=== PATIENT | male | born 1955 | race Caucasian/White ===

== ENCOUNTER 2022-07-04 19:01 | Emergency (ER) | payer MEDICARE, OTHER ==
[2022-07-04 19:14] VITALS: BP 180/85
--- NOTE | 2022-07-04 19:57 | ED Physician Documentation ---
History of Present Illness - Stated complaint Stated Complaint: FELL/STAIRS INJURY - Chief complaint Chief Complaint: Trauma Ch/Bk - History obtained from History obtained from: Patient, Family - History of Present Illness Timing: How many minutes ago (45) Pain level max: 5 Pain level now: 3 - Additonal information Additional information: Patient is a 66-year-old male who was carrying a fireplace insert down the stairs when he slipped and fell, they were wooden stairs. No loss of consciousness, but was "dazed". Occurred about 45 minutes prior to arrival. Patient is not on any blood thinners. Denies any neck pain or back pain, does have sacrum/coccyx pain. No numbness or tingling. Also complains of right ankle and right foot pain. Patient does not take any medications at home. He states that his tetanus shot is up-to-date. He is accompanied by his . No vomiting. No seizure activity Review of Systems Constitutional: denies: Fever, Chills GI: denies: Vomiting, Diarrhea Skin: denies: Rash Neurologic: denies: Focal weakness, Numbness, Syncope, Seizure PD PAST MEDICAL HISTORY - Past Medical History Past Medical History: No - Past Surgical History Past Surgical History: No - Present Medications Home Medications: Ambulatory Orders Medication Instructions Recorded Confirmed No Known Home Medications 07/04/22 07/04/22 - Allergies Allergies/Adverse Reactions: Allergies Allergy/AdvReac Type Severity Reaction Status Date / Time No Known Drug Allergies Allergy Verified 07/04/22 19:13 - Living Situation Living Situation: reports: With family Living Arrangement: reports: At home - Social History Does the pt have substance abuse?: No - Family History Family history: reports: Non contributory - Immunizations Immunizations are current?: No Immunizations: TDAP >10years/unknown PD ED PE NORMAL - Vitals Vital signs reviewed: Yes - General General: Alert and oriented X 3, No acute distress, Well developed/nourished - HEENT HEENT: PERRL, Ears normal, Moist mucous membranes, Pharynx benign, Other (No palpable skull fractures. Small abrasion to the left side of the scalp, near the tenriism.) - Neck Neck: Supple, no meningeal sign, No bony TTP, No JVD - Cardiac Cardiac: RRR, Strong equal pulses - Respiratory Respiratory: No respiratory distress, Clear bilaterally - Abdomen Abdomen: Soft, Non tender, Non distended - Back Back: No spinal TTP (No midline tenderness to palpation or percussion over the thoracic or lumbar spine. Does have mild tenderness over the sacrum.) - Extremities Extremities: No deformity, Other (Tender to palpation over the right lateral malleolus. Otherwise normal examination of the foot and ankle of the right lower extremity. Full range of motion of all major joints of the extremities without pain other than the right ankle. NVI) - Neuro Neuro: Alert and oriented X 3, director visual 2-12 intact, No motor deficit, No sensory deficit, Normal speech, Other (Slightly slow to respond to questions.) Eye Opening: Spontaneous Motor: Obeys Commands Verbal: Oriented GCS Score: 15 - Psych Psych: Normal mood, Normal affect Results - Vitals Vitals: Vital Signs - 24 hr 07/04/22 07/04/22 19:09 20:05 Temperature 36.8 C Heart Rate 78 Respiratory 21 Rate Blood Pressure 180/85 H O2 Saturation 100 98 Oxygen O2 Source Room air - Rads (name of study) CT head Relevant Findings:: Final report received, See rad report CT cervical spine Relevant Findings:: Final report received, See rad report Sacrum/coccyx x-ray Relevant Findings:: Final report received, See rad report Right ankle x-ray Relevant Findings:: Final report received, See rad report Right foot x-ray Relevant Findings:: Final report received, See rad report PD Medical Decision Making - ED course Complexity details: reviewed results, re-evaluated patient, considered differential, d/w patient ED course: 66-year-old male with a fall down several stairs. Appears to have a concussion. Head CT does not show any acute abnormalities. Negative CT cervical spine. Negative sacrum x-ray. Negative right foot x-ray. Right ankle shows a nondisplaced transverse fracture at the tip of the lateral malleolus. Placed in a walking boot for this Patient is ambulating well. We will have him follow-up with his doctor for further care. Patient and family counseled regarding signs and symptoms for which I believe and urgent re-evaluation would be necessary. Patient with good understanding of and agreement to plan and is comfortable going home at this time This document was made in part using voice recognition software. While efforts are made to proofread this document, sound alike and grammatical errors may occur. Tdap given. Patient declines any pain medications here or for home Departure - Departure Disposition: 01 Home, Self Care Clinical Impression: Fracture of distal fibula Qualifiers: Encounter type: initial encounter Fracture type: closed Fracture morphology: unspecified fracture morphology Laterality: right Qualified Code(s): S82.831A - Other fracture of upper and lower end of right fibula, initial encounter for closed fracture Concussion Qualifiers: Encounter type: initial encounter Loss of consciousness presence/duration: without LOC Qualified Code(s): S06.0X0A - Concussion without loss of consciousness, initial encounter Sacral contusion Qualifiers: Encounter type: initial encounter Qualified Code(s): S30.0XXA - Contusion of lower back and pelvis, initial encounter Condition: Good Instructions: ED Concussion, ED Contusion Sacrum Coccyx, ED Fx Lower Ext Follow-Up: Orthopedic Care [Provider Group] - Within 1 week Comments: Please follow-up with orthopedics in about 1 week to have your ankle reevaluated. Please return if you worsen. You can use Motrin or Tylenol as needed for pain at home. Your head CT, cervical spine CT do not show any acute abnormalities today. The x-ray of your right foot is normal, the x-ray of your sacrum is normal as well. On your head CT, you may have chronic sinusitis. You can follow-up with your doctor if you are having symptoms of this. Your ankle x-ray does show an acute transverse fracture at the inferior tip of the lateral malleolus. Please stay in the walking boot until released by orthopedics. Discharge Date/Time: 07/04/22 21:38
--- NOTE | 2022-07-04 20:34 | CT Report ---
PROCEDURE: HEAD WO INDICATIONS: fall, down stairs TECHNIQUE: Noncontrast 4.5 mm thick angled axial sections acquired from the foramen magnum to the vertex. For r adiation dose reduction, the following was used: automated exposure control, adjustment of mA and/or kV according to patient size. COMPARISON: None. FINDINGS: Image quality: Excellent. CSF spaces: Basal cisterns are patent. No extra-axial fluid collections. Ventricles are normal in size and shape. Brain: No midline shift. No intracranial masses or hemorrhage. Salomon-white matter interface is norm al. Skull and face: Calvarium and visualized facial bones are intact, without suspicious lesions. Sinuses: Visualized sinuses and mastoids are clear except for asymmetric opacification of a portion of the left ethmoid air cells and left nasal airway. IMPRESSION: No definite acute trauma found. No intracranial hemorrhage identified. Note is made of asymmetric lef t greater than right ethmoid air cell and nasal airway soft tissue prominence. Presumed chronic sinus itis. Reviewed by: Silviano Chen MD on 07/04/2022 8:32 PM PDT Approved by: Silviano Chen MD on 07/04/2022 8:32 PM PDT Station ID: [id number]
--- NOTE | 2022-07-04 20:35 | CT Report ---
PROCEDURE: CERVICAL SPINE WO INDICATIONS: fall, down stairs TECHNIQUE: Noncontrast 3 mm thick sections acquired from the skull base to the T4 level. Sagittal and coronal r eformats were then constructed. For radiation dose reduction, the following was used: automated exp osure control, adjustment of mA and/or kV according to patient size. COMPARISON: None. FINDINGS: Image quality: Excellent. Bones: No fractures or dislocations. Visualized superior ribs are intact. Soft tissues: Prevertebral soft tissues are normal in thickness. No paravertebral hematomas. No ap ical pneumothoraces. IMPRESSION: Mild to moderate degenerative disc disease and facet osteoarthritis but no fracture or traumatic subl uxation is found. Reviewed by: Silviano Chen MD on 07/04/2022 8:34 PM PDT Approved by: Silviano Chen MD on 07/04/2022 8:34 PM PDT Station ID: [id number]
--- NOTE | 2022-07-04 20:37 | XRAY Report ---
PROCEDURE: Ankle 3 View RT INDICATIONS: fall, down stairs TECHNIQUE: views of the ankle were acquired. COMPARISON: None. FINDINGS: Bones: No fractures. Ankle mortise is normally aligned. No suspicious bony lesions. There is a tra nsverse fracture at the inferior tip of the lateral malleolus with overlying soft tissue swelling. Ac cessory ossicles are seen at the base of the cuboid bone on the lateral projection as is a relatively prominent plantar fascial insertion spur, chronic in appearance. Soft tissues: No tibiotalar joint effusion. Achilles tendon appears normal. IMPRESSION: No acute bony abnormality. Acute transverse fracture at the inferior tip of the lateral malleolus. Elsewhere no acute disease. Reviewed by: Silviano Chen MD on 07/04/2022 8:35 PM PDT Approved by: Silviano Chen MD on 07/04/2022 8:35 PM PDT Station ID: [id number]
--- NOTE | 2022-07-04 20:38 | XRAY Report ---
PROCEDURE: Foot 3 View RT INDICATIONS: fall, down stairs TECHNIQUE: 3 views of the foot were acquired. COMPARISON: None. FINDINGS: Bones: No fractures or dislocations. No suspicious bony lesions. Soft tissues: No suspicious soft tissue calcifications or masses. IMPRESSION: No trauma to the right foot is found. Please also refer to acute trauma plain film report from ankle same day. Reviewed by: Silviano Chen MD on 07/04/2022 8:37 PM PDT Approved by: Silviano Chen MD on 07/04/2022 8:37 PM PDT Station ID: [id number]
--- NOTE | 2022-07-04 20:39 | XRAY Report ---
PROCEDURE: Sacrum/Coccyx INDICATIONS: fall, down stairs TECHNIQUE: 3 views of the sacrum and coccyx acquired. COMPARISON: None. FINDINGS: Bones: No fractures or dislocations. No suspicious bony lesions. Soft tissues: Visualized bowel gas pattern is normal. No suspicious soft tissue densities. IMPRESSION: No definite acute trauma found. Reviewed by: Silviano Chen MD on 07/04/2022 8:37 PM PDT Approved by: Silviano Chen MD on 07/04/2022 8:37 PM PDT Station ID: [id number]
[2022-07-04] MEDS ORDERED: TETANUS/DIPHTHERIA/PERTUSSIS 0.5 ML SYRINGE IM ONE (21:02)
== END 2022-07-04 21:38 | disposition home or self-care (01) ==
LOC: ED 19:01
DX: S06.0X0A Concussion without loss of consciousness, initial encounter (principal); S30.0XXA Contusion of lower back and pelvis, initial encounter; S82.61XA Displaced fracture of lateral malleolus of right fibula, initial encounter for closed fracture; W10.8XXA Fall (on) (from) other stairs and steps, initial encounter; Y93.89 Activity, other specified
CPT/HCPCS: 90471; 99284